=== PATIENT | male | born 1930 | race Caucasian/White ===

== ENCOUNTER → 2022-05-19 | Outpatient (CLI) | payer MEDICARE, BC ==
[2022-05-19 23:34] LABS: ALT 17 U/L (10-49); AST 21 U/L (14-35); African American GFR (CKD) 39.7 (60.0-200.0); Albumin 4.1 g/dL (3.8-4.9); Albumin/Globulin Ratio 1.51 (1.60-3.17); Alkaline Phosphatase 82 U/L (41-126); BUN/Creat Ratio 17.23 Ratio (12.00-20.00); Blood Urea Nitrogen 29.8 mg/dL (9.0-27.0); Calcium 9.4 mg/dL (8.7-10.3); Carbon Dioxide 19.3 mmol/L (20.0-27.5); Chloride 107 mmol/L (96-109); Globulin 2.7 g/dL (1.6-3.3); Glucose 110 mg/dL (70-110); Non-African American GFR(CKD) 34.2 (60.0-200.0); Sodium 138 mmol/L (135-145); Total Bilirubin <0.15 mg/dL (0.30-1.20); Total Protein 6.8 g/dL (6.2-8.2)
[2022-05-20 01:28] LABS: Basophils # (A) 0.04 X 10*3/uL (0.00-0.10); Basophils % (A) 0.6 %; Eosinophils # (A) 0.29 X 10*3/uL (0.04-0.35); Eosinophils % (A) 4.1 %; HCT 27.3 % (39.6-50.0); HGB 9.2 g/dL (13.0-17.0); Immature Grans, Automated 0.4 %; Lymphocytes # (A) 1.42 X 10*3/uL (0.90-5.00); MCH 33.2 pg (27.0-32.0); MCHC 33.7 g/dL (32.0-37.0); MCV 98.6 fL (80.0-97.0); Mean Platelet Volume 12.1 fL (9.5-12.2); NRBC Per 100 WBC 0 /100 WBCS (0.0-0.0); Neutrophils # (A) 4.82 X 10*3/uL (1.80-7.70); Neutrophils % (A) 67.9 %; Platelet Count 95 X 10*3/uL (140-440); RBC 2.77 X 10*6/uL (4.40-5.60); RDW 14.2 % (11.5-14.5)
[2022-05-20 01:29] LABS: RBC Morphology NORMAL
== END | disposition home or self-care (01) ==
LOC: LABPAT 16:26
PROVIDERS: ATTEND Urology
DX: Z01.812 Encounter for preprocedural laboratory examination (principal); D49.4 Neoplasm of unspecified behavior of bladder
CPT/HCPCS: 80053; 85025

== ENCOUNTER 2022-05-20 13:29 | Day surgery (SDC) | payer MEDICARE, BC ==
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
[2022-05-20 14:03] VITALS: RESP 16
[2022-05-20] MEDS ORDERED: LACTATED RINGERS 1,000 ML IV ONE (14:12)
[2022-05-20 14:14] LABS: Glucose,Whole Blood 132 mg/dL (70-110)
[2022-05-20] MEDS ORDERED: ONDANSETRON 4 MG/2 ML VIAL ONE (14:29)
[2022-05-20] MEDS ORDERED: ONDANSETRON 4 MG/2 ML VIAL IVP ONE (14:41)
[2022-05-20] MEDS ORDERED: DEXAMETHASONE SOD PHOSPHATE 4 MG/ML 1 ML VIAL IVP ONE (14:42)
[2022-05-20] MEDS ORDERED: MIDAZOLAM 2 MG/2 ML VIAL ONE (15:02)
[2022-05-20] MEDS ORDERED: diphenhydrAMINE 50 MG/ML 1 ML VIAL ONE (15:02)
[2022-05-20] MEDS ORDERED: fentaNYL (PF) 50 MCG/ML 2 ML AMP ONE (15:02)
--- NOTE | 2022-05-20 17:39 | P.OP ---
Date of Procedure: 05/20/22 Preoperative Diagnosis: Bladder tumor Postoperative Diagnosis: Bladder tumor, urethral stricture Procedure(s) Performed: Cystoscopy, TURBT (Large), dilation of urethral stricture Implants: None Anesthesia: JOSEPHA Surgeon: Santi Staples Estimated Blood Loss (ml): 150 Pathology: other (bladder tumor) Condition: stable Disposition: PACU Indications for Procedure: This is an 89-year-old male with gross hematuria, underwent a CT scan that showed evidence of large bladder tumor. Of note patient hemoglobin is 9.2, and has had continued gross hematuria for the past 3 months. Discussed with him given this finding I recommend proceeding with cystoscopy with trans urethral resection of a bladder tumor. Discussed with him the risk which include but not limited to bleeding, infection, bladder perforation. Discussed with him given his age she's an increased risk of medical complications which includes but not limited to heart attack, stroke, blood clots, even loss of life. Discussed with him given his continued gross hematuria if resection is not performed, there is a potential of persistent bleeding, and potential of forming clots within the bladder. These finding were discussed with both the patient and his daughter. He understood all the risk and agreed to proceed with a transurethral resection of a bladder tumor Description of Procedure: Patient brought to the operating room, spinal was performed from anesthesia. Next the resectoscope fitted with 25-[place] sheath was inserted per urethra, at this time a bulbar urethral stricture was encountered. at this time the resectoscope was withdrawn and a cystoscope fitted with a 17-[place] sheath was inserted per urethra, I advanced the scope to the stricture next a sensor wire was advanced through the stricture. Stricture measured approximately 16-[place]. Next using the sishaped dilators, the stricture was dilated to 20-[place]. Next the bipolar resectoscope was inserted and advanced past the narrowing and into the bladder. Cystoscopy was performed showed a large bladder tumor. The bladder tumor measured greater than 10 cm. Involving the entire right lateral wall, posterior wall, extended to the right trigone, and extended along the anterior bladder dome. Using the bipolar resectoscope the tumor was resected down to muscle. The area of resection was thoroughly fulgurated. Of note there was tumor within a diverticulum along the right lateral wall. Dissection was performed superficially at the diverticulum given the risk of perforation. Tumor chips were irrigated out using Meena evacuator. Repeat cystoscopy showed no evidence of bleeding or any additional tumors. At this time the resectoscope was withdrawn and a 22-[place] hematuria catheter was placed with the return of clear urine. The catheter was irrigated to clear. Patient tolerated the procedure well was taken to recovery in stable condition
[2022-05-20 17:46] VITALS: TEMP 97.6
[2022-05-20 18:36] VITALS: BP 127/67; PULSE 85
== END 2022-05-20 19:02 | disposition home or self-care (01) ==
LOC: OR 13:29
PROVIDERS: ATTEND Urology
DX: C67.9 Malignant neoplasm of bladder, unspecified (principal); N32.89 Other specified disorders of bladder; I10 Essential (primary) hypertension; E78.5 Hyperlipidemia, unspecified; J44.9 Chronic obstructive pulmonary disease, unspecified; M19.90 Unspecified osteoarthritis, unspecified site; N42.9 Disorder of prostate, unspecified; K21.9 Gastro-esophageal reflux disease without esophagitis; H91.90 Unspecified hearing loss, unspecified ear; Z85.828 Personal history of other malignant neoplasm of skin; Z90.89 Acquired absence of other organs; Z87.891 Personal history of nicotine dependence; Z98.890 Other specified postprocedural states; Z79.899 Other long term (current) drug therapy; Z83.3 Family history of diabetes mellitus
CPT/HCPCS: 52240; 88307; C1769; J2250; J1200; J1100; J0690; J2405; J3010

== ENCOUNTER 2022-05-27 17:41 | Emergency (ER) | payer MEDICARE, BC ==
[2022-05-27 18:33] VITALS: BP 141/79; PULSE 85; RESP 18; TEMP 97.7
[2022-05-27 19:12] LABS: Basophils % (A) 0 %; Eosinophils # (A) 0.3 k/uL (0-0.7); Eosinophils % (A) 3 %; HCT 25.9 % (39.0-53.0); HGB 8.5 gm/dL (13.0-17.5); Hypochromasia Slight; Lymphocytes # (A) 0.9 k/uL (1.0-4.8); Lymphocytes % (A) 12 %; MCH 33.5 pg (25.0-35.0); MCV 101.5 fL (80.0-100.0); Macrocytosis Slight; Mean Platelet Volume 8.5; Monocytes # (A) 0.3 k/uL (0-1.0); Monocytes % (A) 4 %; Neutrophils # (A) 5.9 k/uL (1.3-7.7); Neutrophils % (A) 78 %; Platelet Count 238 k/uL (150-450); RBC 2.55 m/uL (4.30-5.90); RDW 14.7 % (11.5-15.5); WBC 7.6 k/uL (3.8-10.6)
[2022-05-27 19:15] LABS: Appearance,Urine Cloudy (Clear); Bacteria,Urine Rare /hpf; Bilirubin,Urine Negative (Negative); Blood,Urine Large (Negative); Budding Yeast,Urine Occasional /hpf; Color,Urine Yellow; Glucose,Urine (UA) Negative (Negative); Ketones,Urine Negative (Negative); Leukocyte Esterase,Urine Large (Negative); Mucus,Urine Rare /hpf; Nitrite,Urine Negative (Negative); PH, Urine 5.5 (5.0-8.0); Protein,Urine 1+ (Negative); RBC,Urine >182 /hpf (0-5); Squamous Epithelial Cell,Urine <1 /hpf (0-4); Urobilinogen,Urine <2.0 mg/dL (<2.0); WBC,Urine 41 /hpf (0-5)
[2022-05-27 19:20] LABS: Albumin 3.8 g/dL (3.5-5.0); Calcium 9.1 mg/dL (8.4-10.2); Potassium 5.2 mmol/L (3.5-5.1); Total Bilirubin 0.4 mg/dL (0.2-1.3); Total Protein 6.5 g/dL (6.3-8.2)
--- NOTE | 2022-05-27 20:19 | XR ---
EXAMINATION TYPE: XR chest 2V DATE OF EXAM: 05/27/2022 COMPARISON: 08/23/2019 HISTORY: Weakness TECHNIQUE: 2 view FINDINGS: Heart is normal. Lungs are clear of consolidation. There are no hilar masses. Costophrenic angles are clear. There is some mild atheromatous change in the thoracic aorta. IMPRESSION: No active cardiopulmonary disease. No change
[2022-05-27] MEDS ORDERED: SODIUM CHLORIDE 0.9% 500 ML 500 ML IV STA (23:37)
[2022-05-27] MEDS ORDERED: NALOXONE 0.4 MG/ML 1 ML VIAL IV PRN (23:37)
[2022-05-27] MEDS ORDERED: MORPHINE SULFATE 4 MG/ML SYRINGE IV PRN (23:37)
[2022-05-27] MEDS ORDERED: ONDANSETRON 4 MG/2 ML VIAL IVP PRN (23:37)
[2022-05-27] MEDS ORDERED: SODIUM CHLORIDE 0.9% 1,000 ML IV SCH (23:45)
== END 2022-05-28 01:06 | disposition left against medical advice (07) ==
LOC: EC 17:41
DX: R53.1 Weakness (principal); Z53.21 Procedure and treatment not carried out due to patient leaving prior to being seen by health care provider
CPT/HCPCS: 36415; 71046; 80053; 81001; 82550; 82553; 85025; 99499